=== PATIENT | female | born 1990 ===

== ENCOUNTER 2017-08-09 17:51 | Emergency (ER) | payer OTHER ==
[2017-08-09 18:46] VITALS: TEMP 98.5
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
[2017-08-09 20:37] VITALS: BP 110/88; PULSE 74; RESP 18
[2017-08-10 02:20] VITALS: O2SAT 98
== END 2017-08-09 20:34 | disposition home or self-care (01) ==
LOC: C.ER 17:51
DX: S16.1XXA Strain of muscle, fascia and tendon at neck level, initial encounter (principal); V89.2XXA Person injured in unspecified motor-vehicle accident, traffic, initial encounter